=== PATIENT | male | born 1970 | race Caucasian/White ===

== ENCOUNTER 2017-02-09 18:38 | Emergency (ER) | payer MEDICARE, MEDICAID ==
[~2017-02-09] VITALS: Ht 172.7 cm; Wt 76.7 kg
--- NOTE | 2017-02-09 18:38 | NUR ---
PT WORSENING RIGHT LEG PAIN AND SWELLING, H/O OF LLE APRIL 2016. VSS. AWAITING MD ORDER
[2017-02-09] MEDS ORDERED: HYDROCODONE/APAP 5/325MG 1 EACH TABLET PO ONE (19:00)
[2017-02-09] MEDS ORDERED: HYDROCODONE/APAP 5/325MG 1 EACH TABLET ONE (19:07)
--- NOTE | 2017-02-09 19:11 | NUR ---
XRAY AT BEDSIDE
--- NOTE | 2017-02-09 19:13 | NUR ---
GAVE REPORT TO JESUS CAMACHO FOR SIMONE
--- NOTE | 2017-02-09 19:29 | NUR ---
PT LYING IN BED IN NO APPARENT DISTRESS XRAY IN ROOM, PTON MONITOR, MADE AWARE WILL CONTINUE TO MONITOR.
--- NOTE | 2017-02-09 20:37 | NUR ---
CALLED [facility] FOR TRANSPORTATION GOING TO [facility] ETA 1 HOUR.
[2017-02-09 21:44] VITALS: BP 107/74
== END 2017-02-09 21:45 ==
LOC: ER 18:40
DX: M79.604 Pain in right leg (principal); G89.29 Other chronic pain; E11.9 Type 2 diabetes mellitus without complications; F31.9 Bipolar disorder, unspecified; I25.2 Old myocardial infarction; N18.9 Chronic kidney disease, unspecified; Z88.0 Allergy status to penicillin; Z88.2 Allergy status to sulfonamides; Z88.8 Allergy status to other drugs, medicaments and biological substances; Z88.1 Allergy status to other antibiotic agents; Z91.040 Latex allergy status; Z88.6 Allergy status to analgesic agent
CPT/HCPCS: 73590; 99284; A4606; Z7610